=== PATIENT | male | born 1960 | race Caucasian/White ===

== ENCOUNTER 2021-04-07 08:00 | Outpatient (CLI) | payer OTHER ==
[2021-04-07 19:57] LABS: BILIRUBIN,URINE NEGATIVE (NEGATIVE); GLUCOSE, URINE (UA) NEGATIVE (NEGATIVE); KETONES,URINE (UA) NEGATIVE (NEGATIVE); LEUKOCYTE ESTERASE, URINE NEGATIVE (NEGATIVE); NITRITE,URINE NEGATIVE (NEGATIVE); OCCULT BLOOD,URINE NEGATIVE (NEGATIVE); PH,URINE 5.5 PH (5.0-7.5); PROTEIN,URINE NEGATIVE (NEGATIVE); UROBILINOGEN,URINE 0.2 (NORMAL) E.U./dL (NORMAL)
[2021-04-07 20:20] LABS: BACTERIA,URINE None Seen /HPF (None Seen); CLARITY,URINE CLEAR (CLEAR); RBC,URINE 0-5 /HPF (0-5); SQUAMOUS EPITHELIAL CELL,UR NONE SEEN (<= Few); WBC,URINE 0-3 /HPF (0-3)
== END 2021-04-07 23:59 | disposition home or self-care (01) ==
LOC: LAB.S 08:00
PROVIDERS: ATTEND Physician Assistant Medical
DX: R31.9 Hematuria, unspecified (principal)
CPT/HCPCS: 81001; 87086

== ENCOUNTER 2021-04-12 19:14 | Outpatient (CLI) | payer OTHER ==
--- NOTE | 2021-04-12 20:49 | Ultrasound Report ---
PROCEDURE: Retroperitoneal INDICATIONS: Hematuria, flank pain TECHNIQUE: Real-time scanning was performed of the kidneys and bladder, with image documentation. COMPARISON: None. FINDINGS: Kidneys: Right kidney measures 11.5 cm long; left kidney measures 11.4 cm long. Right renal cortica l thickness is 1.5 cm; left renal cortical thickness is 1.7 cm. Renal cortical echotexture is normal . No hydronephrosis. There are 2 right renal cysts demonstrated including a septated cyst in the inf erior pole measuring up to 2.6 x 2.2 x 2.7 cm. There is an exophytic cyst in the interpolar region me asuring up to 1.8 x 1.4 x 1.5 cm. No discrete shadowing renal stones identified. Bladder: Pre-void bladder volume is 76 mL. Post-void residual is 20 mL. Pre-void images demonstrat e no intraluminal masses or stones. On pre-void images, the right ureteral jet is noted with color D oppler interrogation. (Of note, ureteral jets may not be detectable in up to 25% of cases due to ins ufficient differences in specific gravity between ureteral and bladder urine). Miscellaneous: There is a lobulated enlarged prostate measuring approximately 5.7 x 6.2 x 6.7 cm. Th ere is a lobulated median lobe component extending into the base of the bladder. No free pelvic fluid . IMPRESSION: 1. No evidence of hydronephrosis. 2. Postvoid residual volume of 20 mL. 3. Enlarged heterogeneous prostate with extension of an enlarged median lobe into the base of the madiha dder. Findings are compatible with BPH and correlation is recommended clinically for bladder outlet o bstruction. If clinically indicated, further evaluation may be obtained with a prostate MRI. Reviewed by: Master Groves MD on 04/12/2021 8:47 PM PST Approved by: Master Groves MD on 04/12/2021 8:47 PM PST Station ID: [id number]
== END 2021-04-12 19:15 | disposition home or self-care (01) ==
LOC: DI 19:14
PROVIDERS: ATTEND Physician Assistant Medical
DX: R31.9 Hematuria, unspecified (principal); R10.9 Unspecified abdominal pain; N40.0 Benign prostatic hyperplasia without lower urinary tract symptoms